=== PATIENT | male | born 1955 | race African-American/Black ===

== ENCOUNTER → 2016-11-23 | Outpatient (CLI) | payer OTHER ==
--- NOTE | 2016-11-23 19:02 | CT ---
EXAMINATION TYPE: CT pelvis w con DATE OF EXAM: 11/23/2016 5:55 PM COMPARISON: NONE HISTORY: Infection after procedure, initial encounter. Left gluteal wound status post abscess lancing . CT DLP: 1097.7 mGycm Automated exposure control for dose reduction was used. CONTRAST: Performed with IV Contrast, patient injected with 100 mL of Omnipaque 300. FINDINGS: Scanning of the pelvis shows linear density left perianal fat correlates with history of surgical pro cedure or lancing extending inferiorly and posteriorly. Minimal residual fat stranding along lateral margin is seen best near axial image 44. No well-formed fluid collection or abscess is identified. Po sterior pelvic muscles are symmetric and felt within normal limits. Some pelvic phleboliths are seen. Visualized bowel shows no suspicious dilatation. Normal-appearing a ppendix is seen from cecum. Prostate gland is slightly lobulated but not suspiciously enlarged. There is disc space narrowing with vacuum disc phenomenon and spurring at L4-L5 and L5-S1 levels in the lo wer lumbar spine. IMPRESSION: PERHAPS MINIMAL RESIDUAL INFLAMMATORY CHANGE AT SITE OF SURGERY. NO WELL-FORMED FLUID COL LECTION OR ABSCESS IDENTIFIED.
== END | disposition home or self-care (01) ==
LOC: RADCTMAIN 17:19
PROVIDERS: ATTEND Surgery
DX: T81.4XXA Infection following a procedure, initial encounter (principal)
CPT/HCPCS: 72193; Q9967

== ENCOUNTER 2018-02-15 09:51 | Day surgery (SDC) | payer OTHER ==
[2018-02-10 15:25] VITALS: BMI 35.9
[~2018-02-15 09:51] MED LIST: LACTATED RINGERS 1,000 ML IV SCH; LIDOCAINE 1% 20 ML VIAL (10MG/ML) FOR IV START INTRADERMA PRN; MIDAZOLAM 2 MG/2 ML VIAL IV PRN
[2018-02-15 11:03] VITALS: TEMP 97.6
[2018-02-15] MEDS ORDERED: PROPOFOL 10 MG/ML 20 ML VIAL IV ONE (11:41)
--- NOTE | 2018-02-15 11:44 | P.GSHP ---
History of Present Illness H&P Date: 02/15/18 Chief Complaint: Anal fissure, anal pain, bleeding Is a 63-year-old male referred from Dr. Roe. Patient rents today for colonoscopy. He's had issues anal fissure with bleeding and pain. Past Medical History Past Medical History: Hypertension, Liver Disease Additional Past Medical History / Comment(s): hx hepatitis C 1995. difficult iv start History of Any Multi-Drug Resistant Organisms: None Reported Additional Past Surgical History / Comment(s): abcess I&D on 05/26/2016 and2016, pilonidal 10/17/17 Past Anesthesia/Blood Transfusion Reactions: No Reported Reaction Smoking Status: Former smoker - Past Family History Father History Unknown: Yes Family Medical History: Myocardial Infarction (CT) Mother History Unknown: Yes Family Medical History: Cancer Medications and Allergies Home Medications Medication Instructions Recorded Confirmed Type Multivitamin [Men's Multi-Vitamin] 1 each PO DAILY 11/09/16 02/15/18 History amLODIPine [Norvasc] 10 mg PO DAILY 11/09/16 02/15/18 History Alpha Lipoic Acid 300 mg PO DAILY 02/10/18 02/15/18 History Fexofenadine HCl [Millie Allergy] 180 mg PO DAILY PRN 02/10/18 02/15/18 History [place]-3 Fatty Acids/Fish Oil [Fish 1 each PO DAILY 02/10/18 02/15/18 History Oil 1,000 mg Softgel] [place] 160 mg PO DAILY 02/10/18 02/15/18 History Allergies Allergy/AdvReac Type Severity Reaction Status Date / Time No Known Allergies Allergy Verified 02/15/18 10:58 Surgical - Exam Vital Signs Temp Pulse Resp BP Pulse Ox 97.6 F 70 18 134/79 100 02/15/18 11:02 02/15/18 11:02 02/15/18 11:02 02/15/18 11:02 02/15/18 11:02 - General well developed, no distress - Eyes PERRL - ENT normal pinna - Neck no masses - Respiratory normal expansion - Cardiovascular Rhythm: regular - Abdomen Abdomen: soft, non tender Assessment and Plan Assessment: History of anal fissure, bleeding. We'll perform colonoscopy.
--- NOTE | 2018-02-15 11:57 | P.OP ---
Date of Procedure: 02/15/18 Preoperative Diagnosis: Anal fissure Postoperative Diagnosis: Internal hemorrhoids Diverticulosis Procedure(s) Performed: Colonoscopy Anesthesia: MAC Surgeon: Francis Driver Pathology: none sent Condition: stable Disposition: PACU Description of Procedure: The patient's placed on the endoscopy table in the lateral position. She received IV sedation. Digital rectal exam was performed which revealed internal hemorrhoids. The flexible colonoscope was then placed patient anus passed rotator colon. The ileocecal valve sutures. The patient had diverticulosis of the entire colon. The cecum, ascending and transverse colon was examined. There was mild diverticular changes. In the descending and sigmoid colon there is extensive diverticular changes. Scope summer back the rectum and this appeared normal. Scope was then withdrawn through the anus and there were significant internal hemorrhoids. The scope was withdrawn from patient.
[2018-02-15 12:24] VITALS: RESP 16
[2018-02-15 12:47] VITALS: BP 113/64; PULSE 65
== END 2018-02-15 13:10 | disposition home or self-care (01) ==
LOC: ORWHC2ENDO 09:51
PROVIDERS: ATTEND Surgery
DX: K64.8 Other hemorrhoids (principal); K57.30 Diverticulosis of large intestine without perforation or abscess without bleeding; I10 Essential (primary) hypertension; K76.9 Liver disease, unspecified; N40.0 Benign prostatic hyperplasia without lower urinary tract symptoms; Z79.899 Other long term (current) drug therapy; Z87.891 Personal history of nicotine dependence
CPT/HCPCS: 45378; J2704

== ENCOUNTER → 2020-08-26 | Outpatient (CLI) | payer BC ==
--- NOTE | 2020-08-27 08:38 | US ---
EXAMINATION TYPE: US carotid duplex BILAT DATE OF EXAM: 08/26/2020 COMPARISON: NONE CLINICAL HISTORY: R09.89 Carotid Bruit. Carotid bruit per order. Hx hypertension, previous smoker. EXAM MEASUREMENTS: RIGHT: Peak Systolic Velocity (PSV) cm/sec ----- Right CCA: 98.1 ----- Right ICA: 123.4 ----- Right ECA: 118.4 ICA/CCA ratio: 1.3 RIGHT: End Diastole cm/sec ----- Right CCA: 24.0 ----- Right ICA: 17.0 ----- Right ECA: 24.7 LEFT: Peak Systolic Velocity (PSV) cm/sec ----- Left CCA: 111.9 ----- Left ICA: 93.6 ----- Left ECA: 120.0 ICA/CCA ratio: 0.8 LEFT: End Diastole cm/sec ----- Left CCA: 18.3 ----- Left ICA: 28.9 ----- Left ECA: 13.4 VERTEBRALS (direction of flow): Right Vertebral: Antegrade Left Vertebral: Antegrade Rhythm: Arrhythmia Intimal thickening seen bilaterally. Minimal plaque seen left bulb. Elevated velocity within left pr oximal CCA. Hypoechoic area with hyperechoic center seen within the left neck measuring 1.1 x 0.8 x 0.4 cm. IMPRESSION: No evidence for hemodynamically significant stenosis. Criteria for Assigning % of Stenosis / Diameter reduction (Estimation based on the indirect measurements of the internal carotid artery velocities (ICA PSV). 1. Normal (no stenosis)=ICA PSV < 125 cm/s: ratio < 2.0: ICA EDV<40 cm/s. 2. Less than 50% stenosis=ICA PSV < 125 cm/s: ratio < 2.0: ICA EDV<40 cm/s. 3. 50 to 69% stenosis=ICA PSV of 125 to 230 cm/s: ration 2.0 ? 4.0: ICA EDV 40-100 cm/s. 4. Greater than 70% stenosis to near occlusion= ICA PSV > 230 cm/s: ratio > 4.0: ICA EDV > 100 cm/s. 5. Near occlusion= ICA PSV velocities may be low or undetectable: variable ratio and ICA EDV. 6. Total occlusion=unable to detect flow.
== END | disposition home or self-care (01) ==
LOC: RADUSWWP 16:50
PROVIDERS: ATTEND Internal Medicine
DX: R09.89 Other specified symptoms and signs involving the circulatory and respiratory systems (principal)
CPT/HCPCS: 93880

== ENCOUNTER → 2021-11-06 | Outpatient (CLI) | payer MEDICARE ==
--- NOTE | 2021-11-06 08:27 | MR ---
EXAMINATION TYPE: MR pelvis wo con DATE OF EXAM: 11/06/2021 COMPARISON: CT pelvis November 23, 2016 HISTORY: Anal fistula Standard multiplanar, multisequence MRI departmental protocol Multiplanar, multisequence images of the pelvis were acquired without contrast. Diffusion weighted im aging was performed. Exam was ordered with IV contrast but despite multiple attempts IV was unsucces sful in placement so was performed without contrast. 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 On the shorter field of view images there appears to be break through t he posterior anal muscle layer at 6:00 position seen best on image 20 series 301. Markedly heterogeneous slightly enlarged prostate gland is identified. Seminal vesicles are symmetric and bulky. Urinary bladder is partially imaged. No concerning pelvic fluid collection or adenopathy is identified. Visualized portion of osseous structures are intact. IMPRESSION: As above. Documentation of enterocutaneous fistula.
== END | disposition home or self-care (01) ==
LOC: RADMRIMAIN 06:32
PROVIDERS: ATTEND Surgery
DX: K63.2 Fistula of intestine (principal)
CPT/HCPCS: 72195

== ENCOUNTER → 2023-04-11 | Outpatient (CLI) | payer MEDICARE ==
[2023-04-11 17:42] LABS: Basophils # (A) 0.08 X 10*3/uL (0.00-0.10); Basophils % (A) 0.8 %; Eosinophils # (A) 0.37 X 10*3/uL (0.04-0.35); Eosinophils % (A) 3.6 %; HCT 46.3 % (39.6-50.0); HGB 14.4 d/dL (13.0-17.0); Lymphocytes # (A) 2.28 X 10*3/uL (0.90-5.00); Lymphocytes % (A) 22.2 %; MCH 25.8 pg (27.0-32.0); MCHC 31.1 d/dL (32.0-37.0); MCV 82.8 FL (80.0-97.0); Mean Platelet Volume 10.3 FL (9.5-12.2); Monocytes # (A) 0.69 X 10*3/uL (0.20-1.00); Monocytes % (A) 6.7 %; NRBC Per 100 WBC 0 X 10*3/uL (0.00-0.01); Neutrophils # (A) 6.82 X 10*3/uL (1.80-7.70); Neutrophils % (A) 66.4 %; Platelet Count 260 X 10*3/uL (140-440); RBC 5.59 X 10*6/uL (4.40-5.60); RBC Morphology Normal (Normal); RDW 14.4 % (11.5-14.5); WBC 10.27 X 10*3/uL (4.50-10.00)
[2023-04-11 18:00] LABS: ALT 46 U/L (10-49); AST 66 U/L (14-35); Albumin 3.8 d/dL (3.8-4.9); Alkaline Phosphatase 107 U/L (41-126); Blood Urea Nitrogen 10.9 mg/dL (9.0-27.0); Calcium 8.9 mg/dL (8.7-10.3); Carbon Dioxide 24.7 mmol/L (21.6-31.8); Chloride 104 mmol/L (96-109); Globulin 3.8 d/dL (1.6-3.3); Glucose 107 mg/dL (70-110); Sodium 140 mmol/L (135-145); Total Bilirubin 0.5 mg/dL (0.3-1.2); Total Protein 7.6 d/dL (6.2-8.2)
== END | disposition home or self-care (01) ==
LOC: LABPAT 09:59
PROVIDERS: ATTEND Surgery
DX: Z01.818 Encounter for other preprocedural examination (principal); K43.9 Ventral hernia without obstruction or gangrene
CPT/HCPCS: 80053; 85025; 86850; 86900; 86901; 93005

== ENCOUNTER 2023-04-20 07:09 | Day surgery (SDC) | payer MEDICARE ==
[2023-04-14 12:33] VITALS: BMI 36.2
[~2023-04-20 07:09] MED LIST changes: +ACETAMINOPHEN TAB 500 MG TAB PO PRN; +DEXAMETHASONE SOD PHOSPHATE 4 MG/ML 1 ML VIAL IV ONE; +HEPARIN SODIUM,PORCINE/PF 5,000 UNIT/0.5 ML SYRINGE SQ PRN; +HYDROmorphone 0.5 MG/0.5 ML SYRINGE IVP PRN; +LIDOCAINE 1% (10MG/ML) FOR IV START INTRADERMA PRN; -LIDOCAINE 1% 20 ML VIAL (10MG/ML) FOR IV START INTRADERMA PRN; -MIDAZOLAM 2 MG/2 ML VIAL IV PRN; +ONDANSETRON 4 MG/2 ML VIAL IVP ONE
[2023-04-20 08:06] LABS: Glucose,Whole Blood 87 mg/dL (70-110)
[2023-04-20] MEDS ORDERED: fentaNYL (PF) 50 MCG/ML 2 ML AMP IVP ONE ×2 (08:29)
[2023-04-20] MEDS ORDERED: MIDAZOLAM 2 MG/2 ML VIAL IVP ONE (08:29)
[2023-04-20] MEDS ORDERED: HEPARIN SODIUM,PORCINE 5,000 UNIT/ML 1 ML VIAL SQ ONE (08:41)
--- NOTE | 2023-04-20 08:41 | P.ANPRN ---
Procedure Note - Anesthesia - Nerve Block Performed Bilateral Erector Spinae Single Date of Procedure: 04/20/23 Procedure Start Time: 08:29 Procedure Stop Time: 08:37 Location of Patient: PreOp Indication: Acute Post-Operative Pain, Requested by Surgeon Specifically requested for management of pain by DrClementina: Francis Driver Sedation Type: Sedate with meaningful contact maintained Preparation: Sterile Prep Position: Prone Needle Types: Pajunk Needle Gauge: 20 Ultrasound used to visualize needle placement: Yes Ultrasound used to observe medication spread: Yes Injectate: 0.5% Ropivacaine (see comment for volume) (20 mL on each side with 4 mg Decadron) Blood Aspirated: No Pain Paresthesia on Injection Noted: No Resistance on Injection: Normal
[2023-04-20] MEDS ORDERED: GLYCOPYRROLATE 0.2 MG/ML 2 ML VIAL ONE (08:49)
[2023-04-20] MEDS ORDERED: ROCURONIUM 10 MG/ML (5 ML VIAL) IV ONE (08:49)
[2023-04-20] MEDS ORDERED: fentaNYL (PF) 50 MCG/ML 2 ML AMP ONE (08:49)
[2023-04-20] MEDS ORDERED: LIDOCAINE 1% INJ 10MG/ML (20 ML MDV) ONE (08:49)
[2023-04-20] MEDS ORDERED: HYDROmorphone (PF) 1 MG/ML ONE (08:49)
[2023-04-20] MEDS ORDERED: SODIUM CHLORIDE 0.9% (PF) 10 ML VIAL ONE (08:49)
[2023-04-20] MEDS ORDERED: KETOROLAC 15 MG/ML 1 ML VIAL ONE (08:49)
[2023-04-20] MEDS ORDERED: KETAMINE HCL IN 0.9 % NACL 50 MG/5 ML SYRINGE ONE (08:49)
[2023-04-20] MEDS ORDERED: ROPIVACAINE 5 MG/ML 30 ML VIAL ONE (08:49)
[2023-04-20] MEDS ORDERED: SUCCINYLCHOLINE CHLORIDE 200 MG/10 ML VIAL IV ONE (08:49)
[2023-04-20] MEDS ORDERED: NEOSTIGMINE 1 MG/ML 10 ML VIAL ONE (08:49)
[2023-04-20] MEDS ORDERED: PROPOFOL 10 MG/ML 20 ML VIAL IV ONE (08:49)
[2023-04-20] MEDS ORDERED: DEXAMETHASONE SOD PHOSPHATE 4 MG/ML 1 ML VIAL ONE (08:49)
[2023-04-20] MEDS ORDERED: LIDOCAINE 0.5%-EPI 1:200,000 50 ML VIAL SQ ONE ×2 (09:11)
--- NOTE | 2023-04-20 10:02 | P.OP ---
Date of Procedure: 04/20/23 Preoperative Diagnosis: Incarcerated ventral hernia Postoperative Diagnosis: Incarcerated ventral hernia Procedure(s) Performed: Laparoscopic robotic system repair of incarcerated ventral hernia Anesthesia: NEEL Surgeon: Francis Driver Estimated Blood Loss (ml): 5 Pathology: other (Hernia sac/omentum) Condition: stable Disposition: PACU Description of Procedure: The patient was placed on the operating table in the supine position. He received general anesthesia. His abdomen was prepped and draped usual fashion. Using a 5 mm optical trocar under direct visualization the peritoneal cavity was entered in the left upper quadrant. The abdomen was then insufflated. The laparoscope was placed back into the perineal cavity. Next a 8 mm robotic trocar was placed in the left lower quadrant and a 12 mm robotic trocar was placed in the left lateral position. The original 5 mm trocar was exchanged for a 8 mm robotic trocar. A four-quadrant transverse abdominal block was then performed using 1% local Xylocaine. The patient's placed in the left side up position. And the patient was docked to the robot. The ventral hernias located in the mid epigastric position in the midline. The ventral hernia was visualized. Using hook cautery the peritoneum over the i ncarcerated ventral hernia was excised. Incarcerated omentum and hernia sac were transected sent to pathology. The fascial opening was repaired using 0V LOC suture. Next a piece of 11 cm round ventral light ST mesh was placed into the. Cavity and secured with 2 OV lock suture. The patient was undocked the robot. The needles were retrieved. The fascia of the 12 mm trocar site was closed with 0 Ethibond suture. Skin was closed interrupted 3-0 Monocryl suture. Dermabond dressings was applied. Patient tolerated procedure well and was sent to recovery room stable condition.
[2023-04-20 10:25] VITALS: TEMP 97.3
[2023-04-20 11:53] VITALS: BP 129/85; PULSE 79; RESP 17
== END 2023-04-20 12:06 | disposition home or self-care (01) ==
LOC: OR 07:09
PROVIDERS: ATTEND Surgery
DX: K43.6 Other and unspecified ventral hernia with obstruction, without gangrene (principal); I10 Essential (primary) hypertension; Z79.899 Other long term (current) drug therapy
CPT/HCPCS: 64999; 88302; 49592; C1781; J2250; J0330; J1644; J1100; J2710; J0690; J2405; J2001; J3010; J1170; J2795; J1885; J2704; 86850; 86900; 86901

== ENCOUNTER → 2023-05-30 | Outpatient (CLI) | payer MEDICARE ==
[2023-05-30 15:34] LABS: Basophils % (A) 0.9 %; Eosinophils # (A) 0.45 X 10*3/uL (0.04-0.35); Eosinophils % (A) 4.2 %; HCT 45.9 % (39.6-50.0); HGB 14.3 g/dL (13.0-17.0); Lymphocytes # (A) 2.57 X 10*3/uL (0.90-5.00); Lymphocytes % (A) 24.2 %; MCHC 31.2 g/dL (32.0-37.0); MCV 83.5 FL (80.0-97.0); Monocytes # (A) 0.81 X 10*3/uL (0.20-1.00); Monocytes % (A) 7.6 %; NRBC Per 100 WBC 0 X 10*3/uL (0.00-0.01); Neutrophils # (A) 6.67 X 10*3/uL (1.80-7.70); Neutrophils % (A) 62.8 %; Platelet Count 296 X 10*3/uL (140-440); RDW 14.8 % (11.5-14.5); WBC 10.63 X 10*3/uL (4.50-10.00)
== END | disposition home or self-care (01) ==
LOC: LABPAT 08:14
PROVIDERS: ATTEND Surgery
DX: Z01.812 Encounter for preprocedural laboratory examination (principal)
CPT/HCPCS: 36415; 85025; 86850; 86900; 86901

== ENCOUNTER 2023-06-08 06:53 | Day surgery (SDC) | payer MEDICARE ==
[2023-05-31 11:24] VITALS: BMI 35.8
[~2023-06-08 06:53] MED LIST changes: -HYDROmorphone 0.5 MG/0.5 ML SYRINGE IVP PRN; -LACTATED RINGERS 1,000 ML IV SCH; +droPERidol 5 MG/2 ML VIAL IVP ONE
[2023-06-08] MEDS ORDERED: HYDROmorphone 0.5 MG/0.5 ML SYRINGE IVP PRN (07:00)
[2023-06-08] MEDS: LACTATED RINGERS 1,000 ML IV SCH ×2 (08:02→10:22)
[2023-06-08] MEDS ORDERED: MIDAZOLAM 2 MG/2 ML VIAL IVP ONE (08:10)
[2023-06-08 08:36] VITALS: RESP 16
[2023-06-08] MEDS ORDERED: KETOROLAC 15 MG/ML 1 ML VIAL ONE (08:45)
[2023-06-08] MEDS ORDERED: SUCCINYLCHOLINE CHLORIDE 200 MG/10 ML VIAL IV ONE (08:45)
[2023-06-08] MEDS ORDERED: SUGAMMADEX SODIUM 200 MG/2 ML SDV IV ONE (08:45)
[2023-06-08] MEDS ORDERED: PROPOFOL 10 MG/ML 20 ML VIAL IV ONE (08:45)
[2023-06-08] MEDS ORDERED: fentaNYL (PF) 50 MCG/ML 2 ML AMP ONE (08:45)
[2023-06-08] MEDS ORDERED: MIDAZOLAM 2 MG/2 ML VIAL ONE (08:45)
[2023-06-08] MEDS ORDERED: DEXAMETHASONE SOD PHOSPHATE 4 MG/ML 1 ML VIAL ONE (08:45)
[2023-06-08] MEDS ORDERED: ROPIVACAINE 5 MG/ML 30 ML VIAL ONE (08:45)
[2023-06-08] MEDS ORDERED: BUPIVACAINE (PF) 0.5% 30 ML VIAL SQ ONE (09:18)
--- NOTE | 2023-06-08 09:37 | P.OP ---
Date of Procedure: 06/08/23 Preoperative Diagnosis: Umbilical hernia Postoperative Diagnosis: Umbilical hernia Procedure(s) Performed: Diagnostic laparoscopy Open repair of umbilical hernia Anesthesia: NEEL Surgeon: Frnacis Driver Estimated Blood Loss (ml): 5 Pathology: none sent Condition: stable Disposition: PACU Description of Procedure: Patient's placed in the operative table in the supine position. He received general endotracheal tube anesthesia. His abdomen was prepped and draped usual fashion. A skin incision was made in the left upper quadrant and using a 5 mm optical trocar under direct visualization the peritoneal cavity is entered. The abdomen was insufflated. After adequate insufflation lactulose placed again. There were significant adhesions noted at the umbilical hernia. Due to the adhesions inside performed open repair of umbilical hernia. The trochars withdrawn. Next the skin was incised and infraumbilical position. Using blunt sharp dissection with cautery the subcutaneous tissues were divided and then the fascial defect was opened. The fascial defect was then closed using. 0 Ethibond suture. The skin was closed interrupted 3-0 Monocryl suture. Dermabond was applied. Patient top she will. He was sent to recovery room in stable condition.
[2023-06-08 10:05] VITALS: TEMP 98
[2023-06-08 11:06] VITALS: BP 134/85; PULSE 96
--- NOTE | 2023-06-09 13:46 | P.ANPRN ---
Procedure Note - Anesthesia - Nerve Block Performed Bilateral Rectus Abdominis Single Time Out Performed: Yes Date of Procedure: 06/08/23 Procedure Start Time: 08:10 Procedure Stop Time: 08:16 Location of Patient: PreOp Indication: Acute Post-Operative Pain, Requested by Surgeon Sedation Type: Sedate with meaningful contact maintained Preparation: Sterile Prep Position: Supine Needle Types: Pajunk Needle Gauge: 21 Ultrasound used to visualize needle placement: Yes Ultrasound used to observe medication spread: Yes Blood Aspirated: No Pain Paresthesia on Injection Noted: No Resistance on Injection: Normal Image Stored and Saved: Yes Events: Uneventful and Well Tolerated (ropi .5% 20cc plus dexamethasone 4mg given bilaterally)
== END 2023-06-08 11:21 | disposition home or self-care (01) ==
LOC: OR 06:53
PROVIDERS: ATTEND Surgery
DX: K42.9 Umbilical hernia without obstruction or gangrene (principal); G89.18 Other acute postprocedural pain; I10 Essential (primary) hypertension; K76.9 Liver disease, unspecified; Z79.899 Other long term (current) drug therapy; Z98.890 Other specified postprocedural states
CPT/HCPCS: 49591; 64488; J2250; J0330; J1100; J0690; J2405; J3010; J2795; J1885; J2704; J1644; J0665